=== PATIENT | male | born 1990 | race Caucasian/White ===

== ENCOUNTER 2018-11-28 00:37 | Emergency (ER) | payer OTHER, SELFPAY ==
[~2018-11-28] VITALS: Ht 180.3 cm; Wt 108.2 kg
[2018-11-28] MEDS ORDERED: TETRACAINE 0.5% OPHTH SOLN 4ML OS ONE (01:15)
[2018-11-28] MEDS ORDERED: FLUORESCEIN OPHTH 1 MG STRIP OS ONE (01:15)
[2018-11-28] MEDS ORDERED: SULFACETAMIDE SOD 10% OPHTH SOLN 5ML OU STA (02:10)
[2018-11-28] MEDS ORDERED: SULF10SO13 OP (02:14)
[2018-11-28 02:46] VITALS: BP 142/84
== END 2018-11-28 02:48 | disposition home or self-care (01) ==
LOC: M ED 00:37
DX: H10.32 Unspecified acute conjunctivitis, left eye (principal); H11.32 Conjunctival hemorrhage, left eye

== ENCOUNTER 2023-09-18 13:55 | Emergency (ER) | payer OTHER ==
[~2023-09-18] VITALS: Ht 180.3 cm; Wt 112.4 kg
[~2023-09-18 13:55] MED LIST: SULF10SO13 OP
[2023-09-18] MEDS ORDERED: ISOVUE-370 76% 100ML VIAL As Ordered ONE (15:59)
[2023-09-18 16:00] LABS: BASO % 0.4 % (0.0-1.0); EOS # 0.1 10^3/uL (0.0-0.5); HEMATOCRIT 45.7 % (42.0-52.0); HEMOGLOBIN 15.7 g/dl (13.5-17.5); LYMPH # 1.6 10^3/uL (1.5-5.0); LYMPH % 20.6 % (24.0-44.0); MEAN CORPUSCULAR HEMOGLOBIN 30.4 pg (27.0-33.0); MEAN CORPUSCULAR HGB CONC 34.4 g/dl (32.0-36.5); MEAN CORPUSCULAR VOLUME 88.6 fl (80.0-96.0); MONO # 0.5 10^3/uL (0.0-0.8); NEUTROPHILS # 5.5 10^3/uL (1.5-8.5); NEUTROPHILS % 70.7 % (36.0-66.0); PLATELET COUNT, AUTOMATED 259 10^3/uL (150-450); RED BLOOD COUNT 5.16 10^6/uL (4.30-6.10); WHITE BLOOD COUNT 7.7 10^3/uL (4.0-10.0)
[2023-09-18 16:28] LABS: ALBUMIN 3.8 G/DL (3.2-5.2); BILIRUBIN,DIRECT 0.2 MG/DL (<0.4); BLOOD UREA NITROGEN 11 MG/DL (9-23); CALCIUM LEVEL 8.8 MG/DL (8.5-10.1); CARBON DIOXIDE LEVEL 30 MMOL/L (20-31); CHLORIDE LEVEL 105 MMOL/L (98-107); CREATININE FOR GFR 0.92 MG/DL (0.70-1.30); GLOMERULAR FILTRATION RATE > 60.0 (>60); GLUCOSE, FASTING 84 MG/DL (60-100); POTASSIUM SERUM 4.2 MMOL/L (3.5-5.1); SODIUM LEVEL 140 MMOL/L (136-145); TOTAL PROTEIN 6.9 G/DL (5.7-8.2)
[2023-09-18 18:27] LABS: APPEARANCE, URINE CLEAR (CLEAR); BACTERIA, URINE AUTO NEGATIVE (NEGATIVE); BILIRUBIN, URINE AUTO NEGATIVE (NEGATIVE); BLOOD, URINE BLOOD NEGATIVE (NEGATIVE); COLOR, URINE YELLOW (YELLOW); GLUCOSE, URINE (UA) AUTO NEGATIVE (NEGATIVE); KETONE, URINE AUTO NEGATIVE (NEGATIVE); LEUKOCYTE ESTERASE, URINE AUTO NEGATIVE (NEGATIVE); NITRITE, URINE AUTO NEGATIVE (NEGATIVE); PROTEIN, URINE AUTO NEGATIVE (NEGATIVE); RBC, URINE AUTO 1 /HPF (0-3); SPECIFIC GRAVITY URINE AUTO 1.059 (1.002-1.035); SQUAMOUS EPITHELIAL CELL UR AU 0 /HPF (0-6); UROBILINOGEN, URINE AUTO 0.2 mg/dL (0.0-2.0); WBC, URINE AUTO 1 /HPF (0-3)
[2023-09-18 19:11] LABS: AMPHETAMINES LEVEL URINE NEGATIVE (NEGATIVE); BARBITURATES URINE NEGATIVE (NEGATIVE); BENZODIAZEPINES URINE NEGATIVE (NEGATIVE); CANNABINOIDS URINE NEGATIVE (NEGATIVE); COCAINE METABOLITE URINE NEGATIVE (NEGATIVE); METHADONE URINE NEGATIVE (NEGATIVE); OPIATES URINE NEGATIVE (NEGATIVE); PHENCYCLIDINE URINE NEGATIVE (NEGATIVE)
[2023-09-18 20:14] VITALS: BP 147/78; TEMP 98.7; O2SAT 98
== END 2023-09-18 21:08 | disposition home or self-care (01) ==
LOC: M ED 13:55
DX: S30.1XXA Contusion of abdominal wall, initial encounter (principal); S22.20XA Unspecified fracture of sternum, initial encounter for closed fracture; V49.40XA Driver injured in collision with unspecified motor vehicles in traffic accident, initial encounter; Y92.411 Interstate highway as the place of occurrence of the external cause; Y93.9 Activity, unspecified; Y99.9 Unspecified external cause status
CPT/HCPCS: 36415; 71260; 74177; 80047; 80048; 80076; 80307; 81001; 83605; 85025; 86850; 86900; 86901; 93041; 94760; 99285; Q9967

== ENCOUNTER 2024-06-15 19:35 | Emergency (ER) | payer BC, OTHER ==
[~2024-06-15] VITALS: Ht 180.3 cm; Wt 117.0 kg
[2024-06-16] MEDS ORDERED: METH-1164 PO (00:57)
[2024-06-16] MEDS ORDERED: NAPR-1405 PO (00:57)
[2024-06-16] MEDS: KETOROLAC 60MG 2ML VIAL IM ONE (01:10)
[2024-06-16] MEDS: BOOSTRIX VACCINE (TETANUS/DIPHTH/ACEL. PERTUSSIS) 0.5ML SYR IM ONE (01:11)
[2024-06-16 03:00] VITALS: BP 164/94; TEMP 98; O2SAT 98
== END 2024-06-16 02:39 | disposition home or self-care (01) ==
LOC: M ED 19:35
DX: S93.431A Sprain of tibiofibular ligament of right ankle, initial encounter (principal); S86.091A Other specified injury of right Achilles tendon, initial encounter; W23.1XXA Caught, crushed, jammed, or pinched between stationary objects, initial encounter; Y92.9 Unspecified place or not applicable; Y93.89 Activity, other specified; Y99.0 Civilian activity done for income or pay; Z79.1 Long term (current) use of non-steroidal anti-inflammatories (NSAID); Z79.899 Other long term (current) drug therapy; Z23 Encounter for immunization
CPT/HCPCS: 73610; 73630; 90471; 90715; 96372; 99284; J1885

== ENCOUNTER 2025-01-19 18:58 | Emergency (ER) | payer BC, SELFPAY ==
[~2025-01-19] VITALS: Ht 180.3 cm; Wt 111.4 kg
[~2025-01-19 18:58] MED LIST changes: +METH-1164 PO; +METH-1165 PO; +NAPR-1405 PO
[2025-01-19 21:12] VITALS: BP 167/104; TEMP 97.8; O2SAT 98
== END 2025-01-20 01:45 | disposition left against medical advice (07) ==
LOC: M ED 18:58
DX: Z53.21 Procedure and treatment not carried out due to patient leaving prior to being seen by health care provider (principal)